=== PATIENT | female | born 1990 | race Two or more races ===

== ENCOUNTER 2017-02-05 00:13 | Observation (INO) | payer SELFPAY ==
[~2017-02-05] VITALS: Ht 165.1 cm; Wt 56.7 kg
[~2017-02-05 00:13] MED LIST: CIPR500T94 PO; HYDR-971 PO; NAPR500T8 PO; PROM25TA10 PO
[2017-02-05] MEDS ORDERED: ACETAMINOPHEN 500 MG TABLET PO ONE (00:45)
[2017-02-05] MEDS ORDERED: ONDANSETRON ODT 4 MG TAB.RAPDIS. PO ONE (00:45)
[2017-02-05] MEDS ORDERED: HYDROcodone/APAP 5/325MG 1 TAB TABLET PO ONE (00:45)
[2017-02-05] MEDS ORDERED: fentaNYL PF VIAL 100 MCG/2 ML VIAL IV ONE ×2 (01:00→02:45)
[2017-02-05] MEDS ORDERED: ONDANSETRON PF 4 MG/2 ML VIAL. IV ONE (01:00)
--- NOTE | 2017-02-05 01:39 | PHYS DOC ---
Past Medical History Past Medical History: No Pertinent History Past Surgical History: No Surgical History Alcohol Use: Occasionally Drug Use: Marijuana Adult General Chief Complaint Chief Complaint: ABDOMINAL PAIN HPI HPI Patient is a 26 year old female who presents with lower abdominal pain for the past 2 hours that started after sexual intercourse. Pain is constant, nonradiating, associated with n/v. She denies traumatic sex. Denies vaginal bleeding or discharge. Denies f/c, dysuria, hematuria, back pain, diarrhea, constipation. Review of Systems Review of Systems Constitutional: Denies fever or chills [] Eyes: Denies change in visual acuity, redness, or eye pain [] HENT: Denies nasal congestion or sore throat [] Respiratory: Denies cough or shortness of breath [] Cardiovascular: No additional information not addressed in HPI [] GI: Denies bloody stools or diarrhea [] : Denies dysuria or hematuria [] Musculoskeletal: Denies back pain or joint pain [] Integument: Denies rash or skin lesions [] Neurologic: Denies headache, focal weakness or sensory changes [] Endocrine: Denies polyuria or polydipsia [] Current Medications Current Medications Current Medications Medications (Trade) Dose Ordered Sig/Jesica Start Time Stop Time Status Last Admin Dose Admin Acetaminophen (Tylenol) 500 mg 1X ONCE 02/05/17 00:45 02/05/17 00:45 DC Acetaminophen/ Hydrocodone Bitart (Lortab 5/325) 2 tab 1X ONCE 02/05/17 00:45 02/05/17 00:52 DC Fentanyl Citrate (Fentanyl 2ml Vial) 75 mcg 1X ONCE 02/05/17 02:45 02/05/17 02:46 UNV 02/05/17 02:44 75 MCG Ondansetron HCl (Zofran Odt) 4 mg 1X ONCE 02/05/17 00:45 02/05/17 00:52 DC Ondansetron HCl (Zofran) 4 mg 1X ONCE 02/05/17 01:00 02/05/17 01:01 DC 02/05/17 01:00 4 MG Allergies Allergies Allergies Coded Allergies Type Severity Reaction Last Updated Verified No Known Drug Allergies 08/05/16 No Physical Exam Physical Exam Constitutional: Well developed, well nourished, no acute distress, non-toxic appearance. [] HENT: Normocephalic, atraumatic, bilateral external ears normal, oropharynx moist, nose normal. [] Eyes: PERRLA, EOMI. [] Neck: Normal range of motion, supple. [] Cardiovascular:Heart rate regular rhythm [] Lungs & Thorax: Bilateral breath sounds clear to auscultation [] Abdomen: Bowel sounds normal, soft, moderate suprapubic tenderness, no guarding or rebound. [] Skin: Warm, dry, no erythema, no rash. [] Back: No tenderness, no CVA tenderness. [] Extremities: No tenderness, ROM intact, no edema. [] Neurologic: Alert and oriented X 3, normal motor function, normal sensory function, no focal deficits noted. [] Psychologic: Affect normal, judgement normal, mood normal. [] Current Patient Data Vital Signs Vital Signs Date Time Temp Pulse Resp B/P (MAP) Pulse Ox O2 Delivery O2 Flow Rate FiO2 02/05/17 02:44 16 Room Air 02/05/17 00:25 98.1 73 109/70 (83) 98 98.1 Lab Values Laboratory Tests Test 02/04/17 23:46 02/05/17 00:10 02/05/17 01:00 POC Urine HCG, Qualitative Hcg positive (Negative) Maternal Serum HCG Beta Subunit 84 mIU/mL (0-5) H White Blood Count 16.3 x10^3/uL (4.0-11.0) H Red Blood Count 4.66 x10^6/uL (3.50-5.40) Hemoglobin 13.3 g/dL (12.0-15.5) Hematocrit 40.4 % (36.0-47.0) Mean Corpuscular Volume 87 fL (79-100) Mean Corpuscular Hemoglobin 29 pg (25-35) Mean Corpuscular Hemoglobin Concent 33 g/dL (31-37) Red Cell Distribution Width 14.2 % (11.5-14.5) Platelet Count 192 x10^3/uL (140-400) Neutrophils (%) (Auto) 76 % (31-73) H Lymphocytes (%) (Auto) 19 % (24-48) L Monocytes (%) (Auto) 3 % (0-9) Eosinophils (%) (Auto) 1 % (0-3) Basophils (%) (Auto) 0 % (0-3) Neutrophils # (Auto) 12.4 x10^3uL (1.8-7.7) H Lymphocytes # (Auto) 3.1 x10^3/uL (1.0-4.8) Monocytes # (Auto) 0.5 x10^3/uL (0.0-1.1) Eosinophils # (Auto) 0.2 x10^3/uL (0.0-0.7) Basophils # (Auto) 0.0 x10^3/uL (0.0-0.2) Sodium Level 144 mmol/L (136-145) Potassium Level 3.7 mmol/L (3.5-5.1) Chloride Level 107 mmol/L (98-107) Carbon Dioxide Level 27 mmol/L (21-32) Anion Gap 10 (6-14) Blood Urea Nitrogen 9 mg/dL (7-20) Creatinine 0.7 mg/dL (0.6-1.0) Estimated GFR (Cockcroft-Gault) 101.1 Glucose Level 93 mg/dL (70-99) Calcium Level 8.5 mg/dL (8.5-10.1) Total Bilirubin 0.2 mg/dL (0.2-1.0) Direct Bilirubin 0.1 mg/dL (0.0-0.2) Aspartate Amino Transferase (AST) 16 U/L (15-37) Alanine Aminotransferase (ALT) 19 U/L (14-59) Alkaline Phosphatase 57 U/L (46-116) Total Protein 6.8 g/dL (6.4-8.2) Albumin 4.2 g/dL (3.4-5.0) Laboratory Tests 02/05/17 01:00 Laboratory Tests 02/05/17 01:00 Radiology/Procedures Radiology/Procedures US OB <14 wks IMPRESSION: 1. No intrauterine is identified. 2. There is free fluid seen within the pelvis which is more than typically seen with some internal echoes within which is suggestive of regions of debris and/or hemorrhage. A portion of the mixed echogenicity material is within the right adnexa adjacent to the right ovary. Given the lack of intrauterine causes such as ruptured ectopic are within the differential but given that a definitive pole is not seen in the adnexa other etiologies complex free fluid/blood within the pelvis remain within the differential. Report called to the ER at 2:14 AM on date of exam Electronically signed by: Marlon Vázquez MD (02/05/2017 2:19 AM) Course & Med Decision Making Course & Med Decision Making Pertinent Labs and Imaging studies reviewed. (See chart for details) Laboratory evaluation is largely unremarkable. Imaging is concerning for possible ruptured ectopic vs other as above. Pain is persistent, but not worsening. Vitals have remained stable. Discussed case Dr. Corral, [employer] , who agrees with observation admit. Dragon Disclaimer Dragon Disclaimer This electronic medical record was generated, in whole or in part, using a voice recognition dictation system. Departure Departure Impression: Primary Impression: Abdominal pain Disposition: ADMITTED INPATIENT Condition: STABLE Referrals: NO PCP (PCP) Problem Qualifiers Primary Impression: Abdominal pain Abdominal location: lower abdomen, unspecified Qualified Codes: R10.30 - Lower abdominal pain, unspecified Sedrick SHUKLA MD Feb 05, 2017 01:39
[2017-02-05 02:13] LABS: BASO % 0 % (0-3); EOS % 1 % (0-3); HEMATOCRIT 40.4 % (36.0-47.0); HEMOGLOBIN 13.3 g/dL (12.0-15.5); LYMPH # 3.1 x10^3/uL (1.0-4.8); LYMPH % 19 % (24-48); MEAN CORPUSCULAR HEMOGLOBIN 29 pg (25-35); MEAN CORPUSCULAR HGB CONC 33 g/dL (31-37); MEAN CORPUSCULAR VOLUME 87 fL (79-100); MONO % 3 % (0-9); NEUT % 76 % (31-73); PLATELET COUNT 192 x10^3/uL (140-400); RED BLOOD COUNT 4.66 x10^6/uL (3.50-5.40); RED CELL DISTRIBUTION WIDTH 14.2 % (11.5-14.5); WHITE BLOOD COUNT 16.3 x10^3/uL (4.0-11.0)
[2017-02-05 02:18] LABS: CALCIUM 8.5 mg/dL (8.5-10.1); CREATININE 0.7 mg/dL (0.6-1.0); GFR 101.1; POTASSIUM 3.7 mmol/L (3.5-5.1)
--- NOTE | 2017-02-05 02:23 | RAD ---
INDICATION: pelvic pain/cramping x 2 hrs COMPARISON: None. TECHNIQUE: Grayscale and color ultrasound images uterus and adnexa. Transabdominal and transvaginal images obtained. FINDINGS: Uterus: 93 x 47 mm. Endometrial Stripe: 10 mm. Right Ovary: 30 x 18 mm. Left Ovary: 29 x 14 mm. There is complex free fluid seen throughout the pelvis. There is some mixed echogenicity material seen within the right adnexa. No intrauterine is seen IMPRESSION: 1. No intrauterine is identified. 2. There is free fluid seen within the pelvis which is more than typically seen with some internal echoes within which is suggestive of regions of debris and/or hemorrhage. A portion of the mixed echogenicity material is within the right adnexa adjacent to the right ovary. Given the lack of intrauterine causes such as ruptured ectopic are within the differential but given that a definitive pole is not seen in the adnexa other etiologies complex free fluid/blood within the pelvis remain within the differential. Report called to the ER at 2:14 AM on date of exam Electronically signed by: Marlon Vázquez MD (02/05/2017 2:19 AM)
[2017-02-05 02:24] LABS: ALBUMIN 4.2 g/dL (3.4-5.0); DIRECT BILIRUBIN 0.1 mg/dL (0.0-0.2); TOTAL BILIRUBIN 0.2 mg/dL (0.2-1.0); TOTAL PROTEIN 6.8 g/dL (6.4-8.2)
--- NOTE | 2017-02-05 02:26 | ACF ---
Admission Forms Criteria ABDOMINAL PAIN Clinical Indications for Admission to Inpatient Care (Place 'X' for any and all applicable criteria): Admission is indicated for ANY ONE of the following(1)(2)(3)(4)(5): [X]I. Inpatient admission required rather than observation care (Also use Abdominal Pain: Observation Care, as appropriate) because of ANY ONE of the following: [ ]a) Severe pain requiring acute inpatient management [X]b) Identification of etiology/finding that requires inpatient care (eg, aortic dissection, free air) [ ]c) Absent bowel sounds with complete ileus(6) [ ]d) Suspected toxic megacolon [ ]e) Severe electrolyte abnormalities requiring inpatient care [ ]f) High fever or infection requiring inpatient admission as indicated by ANY ONE of following(7)(8): [ ] i) Appropriate outpatient or observational care antimicrobial treatment unavailable, not effective, or not feasible [ ] ii) Documented bacteremia [ ] iii) Temperature > 104.9 degrees F (oral) [ ] iv) T >103.1 F (oral) or < 96.8 F(rectal) that does not respond to all emergency treatment measures [ ]g) Signs of intestinal obstruction [B] [ ]h) Hemodynamic instability [ ]i) IV fluid to replace significant ongoing losses (greater than 3 L/m2 per day) (12)(13) [ ]j) Percutaneous or open drainage (eg, abscess, biliary tract ) procedures [ ]k) Parenteral nutrition regimen that must be implemented on inpatient basis [ ]l) Other condition,treatment or monitoring requiring inpatient admission. [ ]II. Peritoneal signs present [ ]III. Surgery needed that cannot be performed on an ambulatory basis. [ ]IV. Evaluation requires patient to not eat or drink for extended period ( eg, more than 24 hours). [ ]V. Contraindications and/or Inappropriate clinical situations for Observational Care in patients with abdominal pain, when ANY ONE of the following is required: [ ]a) Thorough evaluation is required to prevent catastrophic events due to delays in diagnosing (e.g.Mesenteric ischemia) 1,3 [ ]b) Patient with severe pathology or with chronic symptoms unlikely to improve in the ED stay (3) [ ]. General contraindications and/or Inappropriate clinical situations for Observational Care in patients with abdominal pain, when ANY ONE of the following is required: [ ]a) Prediction of prolongation of LOS based on ANY ONE of the following may be considered as a contraindication for observational care 2, 3, 4, 5, 6, 7, 8, 9, 10, 11 [ ]i) Age > 65 yrs. [ ]ii) Patient arriving by ambulance [ ]iii) Patient with high acuity [ ]iv) Patient requiring vital sign monitoring [ ]v) Patient on IV medication [ ]b) Systolic blood pressures 180mmHg 3,12 [ ]c) Patient with altered mental status including delirium and other alteration of consciousness, (3) [ ]d) Patient whose discharge disposition will be to a [facility] home or rehabilitation home should not be managed in Emergency Department Observation Unit. CMS rule requires 3 days hospital stay before such placement.3,13 [ ]e) Patient with failure to thrive due to broad array of etiologies 3,16,17 [ ]f) Inability to ambulate 3,14 Extended stay beyond goal length of stay may be needed for(2)(3): [ ]a) Persistent abdominal pain with suspected intra-abdominal process [ ]b) Diagnosed condition requiring continued stay (e.g., pancreatitis, complicated diverticulitis) [ ]c) Surgery (e.g., colectomy) The original [facility] content created by [employer] has been revised. The portions of the content which have been revised are identified through the use of italic text or in bold, and [facility] [employer] has neither reviewed nor approved the modified material.All other unmodified content is copyright [employer]. Please see references footnoted in the original [facility] edition 2016 Admission Criteria Met?: Yes ANMOL NUNEZ Feb 05, 2017 02:26
[2017-02-05 02:34] LABS: BILIRUBIN,URINE NEGATIVE (NEG); GLUCOSE,URINE NEGATIVE (NEG); NITRITE,URINE NEGATIVE (NEG); PROTEIN,URINE NEGATIVE (NEG-TRACE); UROBILINOGEN,URINE 0.2 mg/dL (0.2 mg/dL)
[2017-02-05] MEDS ORDERED: ONDANSETRON PF 4 MG/2 ML VIAL. IV PRN (03:15)
[2017-02-05] MEDS ORDERED: ACETAMINOPHEN 325 MG TABLET. PO PRN (03:15)
[2017-02-05] MEDS ORDERED: IV NORMAL SALINE 1000ML BAG 1,000 ML IV SCH (03:15)
[2017-02-05 03:20] LABS: BACTERIA,URINE 0 /HPF (0-FEW); RBC,URINE 0 /HPF (0-2); SQUAMOUS EPITHELIAL CELL,UR OCC /LPF; WBC,URINE OCC /HPF (0-4)
[2017-02-05 04:00] VITALS: BP 108/80
[2017-02-05] MEDS: fentaNYL PF VIAL 100 MCG/2 ML VIAL IV PRN ×2 (04:07→06:19)
[2017-02-05 06:30] VITALS: BP 96/62
--- NOTE | 2017-02-05 08:57 | PDOC ---
SUBJECTIVE Subjective Vital signs stable Abdomen soft Has little pain this morning OBJECTIVE Objective Admission Hb 13 No fever Vital Signs Vital Signs Date Time Temp Pulse Resp B/P (MAP) Pulse Ox O2 Delivery O2 Flow Rate FiO2 02/05/17 06:30 98.2 80 18 96/62 (73) 98 Room Air 98.2 02/05/17 06:19 98 02/05/17 04:00 97.4 76 20 108/80 (89) 98 Room Air 97.4 02/05/17 03:30 64 20 102/63 (76) 96 Room Air 02/05/17 03:00 76 20 104/59 (74) 96 Room Air 02/05/17 02:44 16 Room Air 02/05/17 02:30 66 24 100/70 (80) 96 Room Air 02/05/17 02:00 107/71 (83) 02/05/17 00:30 118/71 (87) 02/05/17 00:25 98.1 73 20 109/70 (83) 98 Room Air 98.1 PHYSICAL EXAM Physical Exam Abdomen soft Pelvic Exam shows Normal EG Uterus firm Enlarged No vaginal bleeding. ASSESSMENT/PLAN Assessment/Plan Will repeat CBC today. Plan dismissal if Hb normal. Problems: COMMENT Lab Laboratory Tests Test 02/04/17 23:46 02/05/17 00:10 02/05/17 00:20 02/05/17 01:00 Bedside Urine HCG, Qualitative Hcg positive (Negative) Maternal Serum HCG Beta Subunit 84 mIU/mL (0-5) Urine Collection Type Unknown Urine Color Yellow Urine Clarity Clear Urine pH 6.0 Urine Specific [place] 1.015 Urine Protein Negative mg/dL (NEG-TRACE) Urine Glucose (UA) Negative mg/dL (NEG) Urine Ketones (Stick) Negative mg/dL (NEG) Urine Blood Negative (NEG) Urine Nitrite Negative (NEG) Urine Bilirubin Negative (NEG) Urine Urobilinogen Dipstick 0.2 mg/dL (0.2 mg/dL) Urine Leukocyte Esterase Negative (NEG) Urine RBC 0 /HPF (0-2) Urine WBC Occ /HPF (0-4) Urine Squamous Epithelial Cells Occ /LPF Urine Bacteria 0 /HPF (0-FEW) White Blood Count 16.3 x10^3/uL (4.0-11.0) Red Blood Count 4.66 x10^6/uL (3.50-5.40) Hemoglobin 13.3 g/dL (12.0-15.5) Hematocrit 40.4 % (36.0-47.0) Mean Corpuscular Volume 87 fL (79-100) Mean Corpuscular Hemoglobin 29 pg (25-35) Mean Corpuscular Hemoglobin Concent 33 g/dL (31-37) Red Cell Distribution Width 14.2 % (11.5-14.5) Platelet Count 192 x10^3/uL (140-400) Neutrophils (%) (Auto) 76 % (31-73) Lymphocytes (%) (Auto) 19 % (24-48) Monocytes (%) (Auto) 3 % (0-9) Eosinophils (%) (Auto) 1 % (0-3) Basophils (%) (Auto) 0 % (0-3) Neutrophils # (Auto) 12.4 x10^3uL (1.8-7.7) Lymphocytes # (Auto) 3.1 x10^3/uL (1.0-4.8) Monocytes # (Auto) 0.5 x10^3/uL (0.0-1.1) Eosinophils # (Auto) 0.2 x10^3/uL (0.0-0.7) Basophils # (Auto) 0.0 x10^3/uL (0.0-0.2) Sodium Level 144 mmol/L (136-145) Potassium Level 3.7 mmol/L (3.5-5.1) Chloride Level 107 mmol/L (98-107) Carbon Dioxide Level 27 mmol/L (21-32) Anion Gap 10 (6-14) Blood Urea Nitrogen 9 mg/dL (7-20) Creatinine 0.7 mg/dL (0.6-1.0) Estimated GFR (Cockcroft-Gault) 101.1 Glucose Level 93 mg/dL (70-99) Calcium Level 8.5 mg/dL (8.5-10.1) Total Bilirubin 0.2 mg/dL (0.2-1.0) Direct Bilirubin 0.1 mg/dL (0.0-0.2) Aspartate Amino Transf (AST/SGOT) 16 U/L (15-37) Alanine Aminotransferase (ALT/SGPT) 19 U/L (14-59) Alkaline Phosphatase 57 U/L (46-116) Total Protein 6.8 g/dL (6.4-8.2) Albumin 4.2 g/dL (3.4-5.0) JEAN-PAUL PARMAR MD Feb 05, 2017 08:57
[2017-02-05 10:21] LABS: HEMATOCRIT 33.8 % (36.0-47.0); HEMOGLOBIN 11.6 g/dL (12.0-15.5); RED BLOOD COUNT 4.02 x10^6/uL (3.50-5.40); RED CELL DISTRIBUTION WIDTH 13.8 % (11.5-14.5); WHITE BLOOD COUNT 14.7 x10^3/uL (4.0-11.0)
[2017-02-05 12:30] VITALS: BP 106/59
--- NOTE | 2017-02-05 18:55 | HP ---
ADMIT DATE: 02/05/2017 CHIEF COMPLAINT AND HISTORY OF PRESENT ILLNESS: The patient is a 26-year-old white female who is a 3, para 2, last menstrual period 01/14/2017 came into the Emergency Room because of excessive pelvic pain and has been on control pills and the patient was seen in the Emergency Room the ER doctor and was admitted to the hospital for observation and further treatment for any ectopic because she did have a sonogram, which showed some fluid in the pelvic cavity. Her test was positive with a hormone level of 85 on the HCG. PHYSICAL EXAMINATION: VITAL SIGNS: Stable. No fever. GENERAL: The patient is alert and not having pain this morning. HEAD, EYES, NOSE, THROAT: Exam within normal limits. LUNGS: Clear. HEART: Sounds regular sinus rhythm. BREASTS: No masses are felt. ABDOMEN: Soft. PELVIC: Shows external genitalia being normal. Cervical os is closed. Uterus feels bulky. No adnexal tenderness at this time. No bleeding noted. EXTREMITIES: No edema of feet. Her hemoglobin has been 13 and patient is feeling hungry and no nausea or vomiting. IMPRESSION: Early , possible ruptured corpus luteum cyst, pelvic pain. PLAN: IV fluids, observation and further treatment. She can be followed in the office in 1 week. If she is feeling better, she will be sent home today. Further HCG levels will be done once a week for the following next 2-3 weeks for observation and treatment. JEAN-PAUL PARMAR MD DR: MAY/marcelo JOB#: [id number] / [id number]
== END 2017-02-05 16:40 | disposition home or self-care (01) ==
LOC: ER 00:13 → 3 NORTH 03:02
PROVIDERS: ADMIT Obstetrics & Gynecology; ATTEND Obstetrics & Gynecology
DX: R10.2 Pelvic and perineal pain (principal)
CPT/HCPCS: 36415; 76801; 76817; 80048; 80076; 81001; 81025; 84702; 85027; 86850; 86900; 86901; 96361; 96374; 96375; 96376; 99285; G0378; J2405; J3010; J7030; G0379

== ENCOUNTER 2018-11-06 20:30 | Emergency (ER) | payer SELFPAY ==
[~2018-11-06] VITALS: Ht 165.1 cm; Wt 63.5 kg
[~2018-11-06 20:30] MED LIST changes: +HYDR-3164 PO; -HYDR-971 PO
[2018-11-06] MEDS: LIDOCAINE 1%/EPI 1:100,000 20 ML VIAL. INJ ONE ×2 (21:02→21:15)
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
[2018-11-06] MEDS ORDERED: ACETAMINOPHEN/CODEINE 300/30MG TABLET. PO ONE (21:15)
[2018-11-06 21:35] VITALS: BP 111/85
[2018-11-06 21:37] LABS: CREATININE ISTAT 0.8 mg/dL (0.5-1.4); HEMOGLOBIN ISTAT 14.6 g/dL (12-15); ION CA ISTAT 1.12 mmol/L (1.13-1.32); POTASSIUM ISTAT 3.6 mmol/L (3.5-5.0)
[2018-11-06] MEDS ORDERED: LIDOCAINE/EPI/TETRACAINE TOPICAL GEL 3 ML. TP ONE (21:45)
[2018-11-06] MEDS ORDERED: CONTRAST GIVEN. MC PRN (22:00)
[2018-11-06] MEDS ORDERED: IOHEXOL 300 MG/ML 100ML VIAL. IV ONE (22:00)
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
[2018-11-06] MEDS ORDERED: LIDOCAINE 1%/EPI 1:100,000 20 ML VIAL. INJ ONE (22:30)
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
[2018-11-06] MEDS ORDERED: HYDR-3164 PO (22:53)
[2018-11-06] MEDS ORDERED: MELO7.5T29 PO (22:53)
== END 2018-11-06 23:30 | disposition home or self-care (01) ==
LOC: ER 20:30
DX: S01.511A Laceration without foreign body of lip, initial encounter (principal); Y08.89XA Assault by other specified means, initial encounter; Y93.89 Activity, other specified; Y92.89 Other specified places as the place of occurrence of the external cause; Y99.8 Other external cause status
CPT/HCPCS: 12011; 70450; 70486; 70491; 80047; 81025; 99284; J3490; Q9967

== ENCOUNTER 2018-11-22 10:09 | Emergency (ER) | payer SELFPAY ==
[~2018-11-22] VITALS: Ht 165.1 cm; Wt 63.5 kg
[~2018-11-22 10:09] MED LIST changes: +MELO7.5T29 PO
[2018-11-22 10:21] VITALS: BP 122/65
--- NOTE | 2018-11-22 10:22 | PHYS DOC ---
Past Medical History Past Medical History: No Pertinent History Past Surgical History: No Surgical History Alcohol Use: Occasionally Drug Use: Marijuana Adult General Chief Complaint Chief Complaint: SUTURE/STAPLE REMOVAL HPI HPI 28-year-old female presents with request for suture removal to laceration that was sustained 15 days ago to left corner of lip extending to mucosal surface. Patient reports she had 5 sutures and 2 of them had since fallen out. Patient reports she did not realize she was post to have them removed earlier. Denies any redness or discharge from wound. Denies any other complaint. Review of Systems Review of Systems Constitutional: Denies fever or chills [] Integument: Denies rash or skin lesions; healing left mouth wound s/p suture repair Neurologic: Denies headache, focal weakness or sensory changes [] Complete systems were reviewed and found to be within normal limits, except as documented in this note. Allergies Allergies Allergies Coded Allergies Type Severity Reaction Last Updated Verified No Known Drug Allergies 08/05/16 No Physical Exam Physical Exam Constitutional: Well developed, well nourished, no acute distress, non-toxic appearance. [] HENT: Normocephalic, atraumatic, mucous membranes moist Neck: Normal range of motion, supple Skin: Warm, dry, left corner of mouth with healed laceration extending onto mucosal surface with retained nylon sutures x 3, no surrounding erythema, no dehiscence Extremities: No tenderness, ROM intact Neurologic: Alert and oriented X 3, no focal deficits noted. [] Psychologic: Affect normal, judgement normal, mood normal. [] EKG EKG [] Radiology/Procedures Radiology/Procedures [] Course & Med Decision Making Course & Med Decision Making Patient presents for removal of sutures to left corner of mouth extending onto mucosal surface. Patient reports she previously had 5 sutures of which 2 had already fallen out. Remaining 3 nylon sutures were successfully removed. No signs of retained foreign body. No dehiscence or signs of infection noted. Patient stable for discharge with outpatient follow-up with PCP. Discussed findings and plan with patient, who acknowledges understanding and agreement. Dragon Disclaimer Dragon Disclaimer This electronic medical record was generated, in whole or in part, using a voice recognition dictation system. Additional Procedures Progress Encounter for suture removal: Verbal consent obtained. Time out performed. Hand hygiene utilized. Wound appears well approximated with 3 remaining simple interrupted nylon sutures. Sutures successfully removed with straight iris scissors and thumb forceps. Patient tolerated procedure well and without difficulty. Departure Departure Impression: Primary Impression: Encounter for removal of sutures Disposition: HOME, SELF-CARE Condition: STABLE Referrals: NO PCP (PCP) Patient Instructions: Suture Removal-Brief Additional Instructions: Use vitamin E ointment to healing laceration to soften and lighten any scarring. ANNABEL FERNANDEZ DO Nov 22, 2018 10:22
== END 2018-11-22 10:28 | disposition home or self-care (01) ==
LOC: ER 10:09
DX: S01.511D Laceration without foreign body of lip, subsequent encounter (principal); X58.XXXD Exposure to other specified factors, subsequent encounter
CPT/HCPCS: 99281

== ENCOUNTER 2020-07-07 17:31 | Emergency (ER) | payer SELFPAY ==
[~2020-07-07] VITALS: Ht 165.1 cm; Wt 65.9 kg
[2020-07-07 19:27] VITALS: BP 107/69
[2020-07-07] MEDS ORDERED: MUPI22OI2 TP (20:01)
[2020-07-07] MEDS ORDERED: CEPH500C PO (20:01)
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
== END 2020-07-07 20:04 | disposition home or self-care (01) ==
LOC: ER 17:31
DX: L40.8 Other psoriasis (principal); L01.00 Impetigo, unspecified; F12.90 Cannabis use, unspecified, uncomplicated; R20.8 Other disturbances of skin sensation
CPT/HCPCS: 99283